=== PATIENT | female | born 1990 | race Caucasian/White ===

== ENCOUNTER → 2018-07-09 | Outpatient (CLI) | payer MEDICAID ==
--- NOTE | 2018-07-09 12:46 | RADIOLOGY REPORT (SQ) ---
EXAM DESCRIPTION: CT ABDOMEN WITH IV ORAL CONT COMPLETED DATE/TIME: 07/09/2018 9:42 am REASON FOR STUDY: R16.2 HEPATOMEGALY WITH SPLENOMEGALY, NOT ELSEWHERE CLASSIFIED R16.2 HEPATOMEGALY WITH SPLENOMEGALY, NOT ELSEWHERE CLASSIFI R94.5 ABNORMAL RESULTS OF LIVER FUNCTION STUDIES COMPARISON: None. TECHNIQUE: CT scan of the abdomen performed with intravenous and with oral contrast using helical sc anning technique with dynamic intravenous contrast injection. Images reviewed with lung, soft tissue, and bone windows. Reconstructed coronal and sagittal MPR images reviewed. Delayed images for evaluat ion of the urinary system also acquired and evaluated. All images stored on PACS. All CT scanners at this facility use dose modulation, iterative reconstruc tion, and/or weight based dosing when appropriate to reduce radiation dose to as low as reasonably ac hievable (ALARA). [facility]: Dose Right [facility]: CareDose [facility]: Dose Right [facility]: Teradose 4D [facility]: GreenNote CONTRAST TYPE AND DOSE: contrast/concentration: Isovue 350.00 mg/ml; Total Contrast Delivered: 89.0 ml; Total Saline Delivered: 53.1 ml RENAL FUNCTION: GFR > 60. RADIATION DOSE: CT Rad equipment meets quality standard of care and radiation dose reduction techniq ues were employed. CTDIvol: 8.4 - 10.0 mGy. DLP: 702 mGy-cm. . LIMITATIONS: None. FINDINGS: LOWER CHEST: No significant findings. No nodules or infiltrates. LIVER: Hepatomegaly with anatomic variant Violeta's lobe. Both lobes measuring about 21 cm in the mid clavicular line. Diffuse low attenuation consistent with fatty change. SPLEEN: Length of 13 cm. No focal lesions. PANCREAS: No masses. No significant calcifications. No adjacent inflammation or peripancreatic fluid collections. Pancreatic duct not dilated. GALLBLADDER: No identified stones by CT criteria. No inflammatory changes to suggest cholecystitis. ADRENAL GLANDS: No significant masses or asymmetry. RIGHT KIDNEY AND URETER: No solid masses. No significant calcifications. No hydronephrosis or hyd roureter. LEFT KIDNEY AND URETER: No solid masses. No significant calcifications. No hydronephrosis or hydr oureter. AORTA AND VESSELS: No aneurysm. No dissection. Renal arteries, SMA, celiac without stenosis. RETROPERITONEUM: No retroperitoneal adenopathy, hemorrhage or masses. BOWEL AND PERITONEAL CAVITY: No masses or inflammatory changes. No free fluid or peritoneal masses. APPENDIX: Normal. ABDOMINAL WALL: No significant hernia. BONES: No significant or acute findings. OTHER: No other significant finding. IMPRESSION: 1. Hepatic steatosis. Hepatomegaly. No ascites. 2. Borderline splenomegaly. TECHNICAL DOCUMENTATION: JOB ID: [id number] Quality ID # 436: Final reports with documentation of one or more dose reduction techniques (e.g., Au tomated exposure control, adjustment of the mA and/or kV according to patient size, use of iterative reconstruction technique) 2010 [employer]- All Rights Reserved Reading location - IP/workstation name: [facility]
== END ==
LOC: RAD 08:55
PROVIDERS: ATTEND Internal Medicine Gastroenterology
DX: R16.2 Hepatomegaly with splenomegaly, not elsewhere classified (principal); R94.5 Abnormal results of liver function studies
CPT/HCPCS: 74160; 82565

== ENCOUNTER 2018-07-27 09:02 | Day surgery (SDC) | payer MEDICAID ==
[2018-07-27 10:22] LABS: HEMATOCRIT 35.1 % (36.0-47.0); HEMOGLOBIN 12.4 g/dL (12.0-15.5); MEAN CORPUSCULAR HEMOGLOBIN 30.7 pg (27.0-33.4); MEAN CORPUSCULAR HGB CONC 35.2 g/dL (32.0-36.0); MEAN CORPUSCULAR VOLUME 87 fl (80-97); PLATELET COUNT 215 10^3/uL (150-450); RED BLOOD COUNT 4.02 10^6/uL (3.72-5.28); RED CELL DISTRIBUTION WIDTH 13.7 % (11.5-14.0); WHITE BLOOD COUNT 8.4 10^3/uL (4.0-10.5)
[2018-07-27 10:29] LABS: INTERNATIONAL RATION (INR) 1.07; PROTHROMBIN TIME 14.5 SEC (11.4-15.4)
[2018-07-27 10:30] LABS: PARTIAL THROMBOPLASTIN TIME 28.6 SEC (23.5-35.8)
[2018-07-27 10:45] LABS: BLOOD UREA NITROGEN 10 mg/dL (7-20); GLUCOSE 222 mg/dL (75-110)
[2018-07-27] MEDS ORDERED: LIDOCAINE 1% INJ-PF (10 MG/ML) 30 ML SDV ONE (11:04)
[2018-07-27] MEDS ORDERED: MIDAZOLAM 2 MG/2 ML INJ ONE (11:04)
[2018-07-27] MEDS ORDERED: FENTANYL CITRATE INJ/PF 250 MCG/5 ML AMPULE ONE (11:04)
--- NOTE | 2018-07-27 12:29 | RADIOLOGY REPORT (SQ) ---
EXAM DESCRIPTION: CT BIOPSY LIVER; CT NEEDLE PLACEMENT COMPLETED DATE/TIME: 07/27/2018 11:53 am REASON FOR STUDY: HEPATOMEGALY; HEPATOMEGALY, LIVER BIOPSY R16.2 HEPATOMEGALY WITH SPLENOMEGALY, NO T ELSEWHERE CLASSIFIED COMPARISON: None. TECHNIQUE: After obtaining informed consent and explaining the risks and benefits of conscious sedat ion,the patient agreed to the procedure. The patient was brought to the CT suite and was placed supin e on the CT gurney. The patient was prepped and draped in the usual sterile fashion . Axial images w ere obtained for targeting of the right lobe of the liver. An appropriate access site was selected. I V conscious sedation was administered and physician direction by the registered nurse using to millig corwin of Versed and 150 micrograms of fentanyl. Physiologic monitoring was provided before, during, an d after sedation. The total sedation time was 45 minutes. Documentation face to face time, the performing proceduralist, spent monitoring the patient: [address] of the liver was performed to localize an approach for the right lobe of the liver biopsy. A percutaneous site was marked. Time out was performed. After skin prep and local lidocaine for skin and deep tissue anesthesia, a coaxial biopsy needle sys tem was used to obtain several cores of tissue from the right lobe of the liver. These were submitte d to the lab in formalin. No immediate postprocedure complications. Total of 15.[address] fluoro was used. [address] Fluoroscopic images were obtained and saved to PACS. All CT scanners at this facility use dose modulation, iterative reconstruction, and/or weight based d osing when appropriate to reduce radiation dose to as low as reasonably achievable (ALARA). [facility]: Dose Right [facility]: CareDose [facility]: Dose Right [facility]: Teradose 4D [facility]: [employer] RADIATION DOSE: CT Rad equipment meets quality standard of care and radiation dose reduction techniq ues were employed. CTDIvol: 6.7 - 19.8 mGy. DLP: 455 mGy-cm. mGy. LIMITATIONS: None. FINDINGS: CT guided liver biopsy as detailed above. IMPRESSION: CT GUIDED right Lobe Of The LIVER BIOPSY PERFORMED ABOVE. PATHOLOGY PENDING. NO IM MEDIATE COMPLICATIONS. COMMENT: Patient medication list reviewed:Yes- Quality ID# [id number]:Eligible professional attests to docu menting in the medical record they obtained, updated, or reviewed the patient's current medications.. Quality ID 145: Final reports for procedures using fluoroscopy that document radiation exposure janice jennifer, or exposure time and number of fluorographic images (if radiation exposure indices are not avail able) TECHNICAL DOCUMENTATION: JOB ID: [id number] Quality ID # 436: Final reports with documentation of one or more dose reduction techniques (e.g., A utomated exposure control, adjustment of the mA and/or kV according to patient size, use of iterative reconstruction technique) 2010 [employer]- All Rights Reserved Reading location - IP/workstation name: [email or web address]
--- NOTE | 2018-07-27 12:29 | RADIOLOGY REPORT (SQ) ---
EXAM DESCRIPTION: CT BIOPSY LIVER; CT NEEDLE PLACEMENT COMPLETED DATE/TIME: 07/27/2018 11:53 am REASON FOR STUDY: HEPATOMEGALY; HEPATOMEGALY, LIVER BIOPSY R16.2 HEPATOMEGALY WITH SPLENOMEGALY, NO T ELSEWHERE CLASSIFIED COMPARISON: None. TECHNIQUE: After obtaining informed consent and explaining the risks and benefits of conscious sedat ion,the patient agreed to the procedure. The patient was brought to the CT suite and was placed supin e on the CT gurney. The patient was prepped and draped in the usual sterile fashion . Axial images w ere obtained for targeting of the right lobe of the liver. An appropriate access site was selected. I V conscious sedation was administered and physician direction by the registered nurse using to millig corwin of Versed and 150 micrograms of fentanyl. Physiologic monitoring was provided before, during, an d after sedation. The total sedation time was 45 minutes. Documentation face to face time, the performing proceduralist, spent monitoring the patient: [address] of the liver was performed to localize an approach for the right lobe of the liver biopsy. A percutaneous site was marked. Time out was performed. After skin prep and local lidocaine for skin and deep tissue anesthesia, a coaxial biopsy needle sys tem was used to obtain several cores of tissue from the right lobe of the liver. These were submitte d to the lab in formalin. No immediate postprocedure complications. Total of 15.[address] fluoro was used. [address] Fluoroscopic images were obtained and saved to PACS. All CT scanners at this facility use dose modulation, iterative reconstruction, and/or weight based d osing when appropriate to reduce radiation dose to as low as reasonably achievable (ALARA). [facility]: Dose Right [facility]: CareDose [facility]: Dose Right [facility]: Teradose 4D [facility]: Cardeeo RADIATION DOSE: CT Rad equipment meets quality standard of care and radiation dose reduction techniq ues were employed. CTDIvol: 6.7 - 19.8 mGy. DLP: 455 mGy-cm. mGy. LIMITATIONS: None. FINDINGS: CT guided liver biopsy as detailed above. IMPRESSION: CT GUIDED right Lobe Of The LIVER BIOPSY PERFORMED ABOVE. PATHOLOGY PENDING. NO IM MEDIATE COMPLICATIONS. COMMENT: Patient medication list reviewed:Yes- Quality ID# [id number]:Eligible professional attests to docu menting in the medical record they obtained, updated, or reviewed the patient's current medications.. Quality ID 145: Final reports for procedures using fluoroscopy that document radiation exposure janice jennifer, or exposure time and number of fluorographic images (if radiation exposure indices are not avail able) TECHNICAL DOCUMENTATION: JOB ID: [id number] Quality ID # 436: Final reports with documentation of one or more dose reduction techniques (e.g., A utomated exposure control, adjustment of the mA and/or kV according to patient size, use of iterative reconstruction technique) 2010 [employer]- All Rights Reserved Reading location - IP/workstation name: [email or web address]
[2018-07-27 14:03] VITALS: BP 120/72
== END 2018-07-27 14:05 | disposition home or self-care (01) ==
LOC: RAD 09:02
PROVIDERS: ATTEND Physician Assistant Surgical
DX: R16.2 Hepatomegaly with splenomegaly, not elsewhere classified (principal); K76.0 Fatty (change of) liver, not elsewhere classified; E11.9 Type 2 diabetes mellitus without complications; Z79.899 Other long term (current) drug therapy; Z79.84 Long term (current) use of oral hypoglycemic drugs
CPT/HCPCS: 36415; 84520; 82565; 82947; 85027; 85610; 85730; 88305 ×2; 88313 ×2; 77012; 47000; J2250; J3010; J3490

== ENCOUNTER 2018-08-01 20:25 | Emergency (ER) | payer MEDICAID ==
[2018-08-01] MEDS ORDERED: MORPHINE SULFATE 10 MG/ML INJ IV PRN (21:18)
[2018-08-01] MEDS ORDERED: RINGERS SOLUTION,LACTATED 1,000 ML IV ONE (21:18)
[2018-08-01 21:56] LABS: ABSOLUTE BASOPHILS # (AUTO) 0.1 10^3/uL (0.0-0.2); ABSOLUTE EOSINOPHILS # (AUTO) 0.2 10^3/uL (0.0-0.6); ABSOLUTE LYMPHOCYTES (AUTO) 2.9 10^3/uL (0.5-4.7); ABSOLUTE MONOCYTES (AUTO) 0.5 10^3/uL (0.1-1.4); ABSOLUTE NEUT (AUTO) 7.7 10^3/uL (1.7-8.2); BASOPHILS % (AUTO) 0.6 % (0-2); EOSINOPHILS % (AUTO) 2.1 % (0-6); HEMOGLOBIN 13.3 g/dL (12.0-15.5); MEAN CORPUSCULAR HEMOGLOBIN 30.7 pg (27.0-33.4); MEAN CORPUSCULAR HGB CONC 34.9 g/dL (32.0-36.0); MEAN CORPUSCULAR VOLUME 88 fl (80-97); MONOCYTES % (AUTO) 4.7 % (3-13); PLATELET COUNT 228 10^3/uL (150-450); RED BLOOD COUNT 4.33 10^6/uL (3.72-5.28); RED CELL DISTRIBUTION WIDTH 13.8 % (11.5-14.0); SEGMENTED NEUTROPHILS % (AUTO) 67.6 % (42-78); TOTAL CELLS COUNTED % (AUTO) 100 %; WHITE BLOOD COUNT 11.5 10^3/uL (4.0-10.5)
--- NOTE | 2018-08-01 22:09 | ER Document Report ---
ED General - General Chief Complaint: Abdominal Pain Stated Complaint: LEFT SIDE PAIN Time Seen by Provider: 08/01/18 21:17 Notes: Patient is a 28-year-old female with a past medical history of hepatosplenomegaly, had a liver biopsy done 6 days ago who presents with 5 days of intermittent, progressively worsening right upper quadrant and right flank pain. Describes it as a stabbing, aching, intermittent pain. Nothing improves or worsens that pain. She denies any associated fever, constitutional symptoms or vomiting. Has not contacted her physician regarding today's concerns. TRAVEL OUTSIDE OF THE [place] IN LAST 30 DAYS: No - Related Data Allergies/Adverse Reactions: No Known Allergies Allergy (Unverified 07/24/18 14:44) Past Medical History - General Information source: Patient - Social History Smoking Status: Never Smoker Frequency of alcohol use: None Drug Abuse: None Lives with: Family Family History: Reviewed & Not Pertinent - Past Medical History Cardiac Medical History: Denies: Hx Coronary Artery Disease, Hx Heart Attack, Hx Hypertension Pulmonary Medical History: Denies: Hx Asthma, Hx Bronchitis, Hx COPD, Hx Pneumonia Neurological Medical History: Denies: Hx Cerebrovascular Accident, Hx Seizures Musculoskeletal Medical History: Denies Hx Arthritis - Immunizations Hx Diphtheria, Pertussis, Tetanus Vaccination: Yes Review of Systems - Review of Systems Notes: Constitutional: Negative for fever. HENT: Negative for sore throat. Eyes: Negative for visual changes. Cardiovascular: Negative for chest pain. Respiratory: Negative for shortness of breath. Gastrointestinal: Positive for abdominal pain Genitourinary: Negative for dysuria. Musculoskeletal: Negative for back pain. Skin: Negative for rash. Neurological: Negative for headaches, weakness or numbness. 10 point ROS negative except as marked above and in HPI. Physical Exam - Vital signs Vitals: Temp Pulse Resp BP Pulse Ox 98.8 F 74 16 148/81 H 99 08/01/18 20:26 08/01/18 20:26 08/01/18 20:26 08/01/18 20:26 08/01/18 20:26 Interpretation: Hypertensive Notes: PHYSICAL EXAMINATION: GENERAL: Well-appearing, well-nourished and in no acute distress. HEAD: Atraumatic, normocephalic. EYES: Pupils equal round and reactive to light, extraocular movements intact, sclera anicteric, conjunctiva are normal. ENT: nares patent, oropharynx clear without exudates. Moist mucous membranes. NECK: Normal range of motion, supple without lymphadenopathy LUNGS: Breath sounds clear to auscultation bilaterally and equal. No wheezes rales or rhonchi. HEART: Regular rate and rhythm without murmurs ABDOMEN: Soft, nontender, normoactive bowel sounds. No guarding, no rebound. No masses appreciated. EXTREMITIES: Normal range of motion, no pitting or edema. No cyanosis. NEUROLOGICAL: No focal neurological deficits. Moves all extremities spontaneously and on command. PSYCH: Normal mood, normal affect. SKIN: Warm, Dry, normal turgor, no rashes or lesions noted. Course - Re-evaluation Re-evalutation: 08/01/18 22:08 Patient presents with 4 days of ongoing right upper quadrant and right flank pain after having a liver biopsy done on Friday. On abdominal exam she has very minimal tenderness the right upper quadrant, is otherwise very well in appearance. Vitals normal limits. No evidence of anemia on CBC. Given that the patient had recent have a biopsy and is having ongoing pain to the upper area that she states has been getting progressively worse will obtain a CT scan of the abdomen pelvis to evaluate for any evidence of postoperative bleeding, intra-abdominal abscess. 08/01/18 22:59 CT scan of the abdomen pelvis unremarkable without any evidence of postoperative complication. Patient's abdominal exam remains benign. At this time will discharge with return precautions and follow-up recommendations. Verbal discharge instructions given a the bedside and opportunity for questions given. Medication warnings reviewed. Patient is in agreement with this plan and has verbalized understanding of return precautions and the need for primary care follow-up in the next 24-72 hours. - Vital Signs Vital signs: Temp Pulse Resp BP Pulse Ox 98.4 F 66 17 124/76 99 08/01/18 23:37 08/01/18 23:37 08/01/18 23:37 08/01/18 23:37 08/01/18 23:37 - Laboratory Result Diagrams: 08/01/18 21:39 08/01/18 21:39 Laboratory results interpreted by me: 08/01/18 08/01/18 21:39 21:39 WBC 11.5 H Glucose 235 H AST 64 H ALT 77 H - Diagnostic Test Radiology reviewed: Reports reviewed Discharge - Discharge Clinical Impression: Postoperative pain, Hepatomegaly Condition: Good Disposition: HOME, SELF-CARE Additional Instructions: Your CT scan is normal without any evidence of bleeding or postoperative complication. Please follow closely with the doctor who performed your procedure regarding your postoperative pain. Please return if you develop a fever of greater than 100.4 F, worsening pain, began vomiting, or have any other symptoms that are worrisome to you. Referrals: GEORGINA RICHARDS, JOSÉ ANTONIOC [Primary Care Provider] - Follow up as needed
[2018-08-01 22:13] LABS: ALANINE AMINOTRANSFERASE 77 U/L (9-52); ALBUMIN 4.3 g/dL (3.5-5.0); ALKALINE PHOSPHATASE 86 U/L (38-126); ANION GAP 11 (5-19); ASPARTATE AMINO TRANSFERASE 64 U/L (14-36); BILIRUBIN,DIRECT 0.4 mg/dL (0.0-0.4); BILIRUBIN,TOTAL 1.2 mg/dL (0.2-1.3); BLOOD UREA NITROGEN 10 mg/dL (7-20); CALCIUM 9.9 mg/dL (8.4-10.2); CARBON DIOXIDE 24 mmol/L (22-30); CHLORIDE 102 mmol/L (98-107); GLUCOSE 235 mg/dL (75-110); POTASSIUM 4.3 mmol/L (3.6-5.0); SODIUM 137.2 mmol/L (137-145)
[2018-08-01 22:19] LABS: INTERNATIONAL RATION (INR) 1.02; PROTHROMBIN TIME 13.9 SEC (11.4-15.4)
[2018-08-01 22:20] LABS: PARTIAL THROMBOPLASTIN TIME 31.5 SEC (23.5-35.8)
--- NOTE | 2018-08-01 22:35 | RADIOLOGY REPORT (SQ) ---
CT ABDOMEN PELVIS WITH IV CONTRAST HISTORY: Abdominal pain status post biopsy. COMPARISON: 07/09/2018 TECHNIQUE: CT scan of the abdomen and pelvis with IV contrast. This exam was performed according to our departmental dose-optimization program, which includes automated exposure control, adjustment of the mA and/or kV according to patient size and/or use of iterative reconstruction technique. FINDINGS: The lung bases are clear. No pleural or pericardial effusions. There is diffuse hepatic steatosis. Liver is enlarged measuring 21 cm. No fluid collection is seen. Spleen is mildly enlarged measuring 14 cm. The pancreas is unremarkable. No gallstones by CT criteria. No adrenal masses are identified. The kidneys are symmetric without hydronephrosis. No ureteral or bladder stones are seen. There is a 2.2 x 1.9 cm right ovarian corpus luteum cyst. No small bowel obstruction. The appendix is unremarkable. The abdominal aorta is normal caliber. There are no suspicious osseous lesions identified. IMPRESSION: 1. Redemonstrated hepatomegaly and hepatic steatosis. No surrounding free fluid, free air, or abscess. 2. Mild splenomegaly. 3. 2.2 cm right corpus luteum cyst.
[2018-08-01 23:38] VITALS: BP 124/76
== END 2018-08-01 23:37 | disposition home or self-care (01) ==
LOC: ER 20:25
DX: R16.2 Hepatomegaly with splenomegaly, not elsewhere classified (principal); Z98.890 Other specified postprocedural states; R10.11 Right upper quadrant pain; R10.9 Unspecified abdominal pain
CPT/HCPCS: 99284; 96361; 96374; 36415; 85025; 85610; 85730; 80053; 74177; J2270; J7120

== ENCOUNTER 2020-07-11 16:49 | Emergency (ER) | payer MEDICAID ==
--- NOTE | 2020-07-11 17:03 | ER Document Report ---
ED Medical Screen (RME) - General Chief Complaint: Abdominal Pain Stated Complaint: ABDOMINAL PAIN Time Seen by Provider: 07/11/20 16:59 Primary Care Provider: AISHA GUERRERO FNP-C [Primary Care Provider] - Follow up as needed Notes: HPI: 30-year-old female with onset of epigastric right upper quadrant pain with radiation into the right thoracic back around 11 AM today. Patient woke up with anorexia. No right lower quadrant pain no dysuria no fever. Slight nausea no vomiting. PHYSICAL EXAMINATION: Patient is moderately tender in the epigastric and right upper quadrant region. There is no tenderness in the right lower quadrant on palpation I have greeted and performed a rapid initial assessment of this patient. A comprehensive ED assessment and evaluation of the patient, analysis of test resu lts and completion of medical decision making process will be conducted by an additional ED providers. Please note that clinical decision making for this patient was made during the 2019 pandemic of novel coronavirus which caused a significant strain on the healthcare system including at this particular facility. Criteria for admission discharge and level of care decisions as well as treatment decisions have necessarily changed TRAVEL OUTSIDE OF THE [place] IN LAST 30 DAYS: No - Related Data Allergies/Adverse Reactions: No Known Allergies Allergy (Verified 07/11/20 16:57) Home Medications: omeprazole. levothyroxine. metformin. fluconazole Past Medical History - Social History Chew tobacco use (# tins/day): No Frequency of alcohol use: Occasional Drug Abuse: None - Past Medical History Cardiac Medical History: Denies: Hx Coronary Artery Disease, Hx Heart Attack, Hx Hypertension Pulmonary Medical History: Denies: Hx Asthma, Hx Bronchitis, Hx COPD, Hx Pneumonia Neurological Medical History: Denies: Hx Cerebrovascular Accident, Hx Seizures Endocrine Medical History: Reports: Hx Diabetes Mellitus Type 1, Hx Diabetes Mellitus Type 2 Renal/ Medical History: Denies: Hx Peritoneal Dialysis Musculoskeltal Medical History: Denies Hx Arthritis - Immunizations Hx Diphtheria, Pertussis, Tetanus Vaccination: Yes Physical Exam - Vital signs Vitals: Temp Pulse Resp BP Pulse Ox 98.5 F 79 20 142/84 H 100 07/11/20 16:55 07/11/20 16:55 07/11/20 16:55 07/11/20 16:55 07/11/20 16:55 Course - Vital Signs Vital signs: Temp Pulse Resp BP Pulse Ox 98.5 F 79 20 142/84 H 100 07/11/20 16:55 07/11/20 16:55 07/11/20 16:55 07/11/20 16:55 07/11/20 16:55 Doctor's Discharge - Discharge Referrals: AISHA GUERRERO, B[employer]ATT[employer] SPECIALIST-C [Primary Care Provider] - Follow up as needed
--- NOTE | 2020-07-11 18:52 | RADIOLOGY REPORT (SQ) ---
EXAM DESCRIPTION: U/S ABDOMEN LIMITED W/O DOP IMAGES COMPLETED DATE/TIME: 07/11/2020 2:34 pm REASON FOR STUDY: epigastric/RUQ pain COMPARISON: CT abdomen 07/09/2018. TECHNIQUE: Dynamic and static grayscale images acquired of the abdomen and recorded on PACS. Additio nal selected color Doppler and spectral images recorded. LIMITATIONS: Portions of the pancreatic tail are partially obscured due to overlying bowel. FINDINGS: PANCREAS: Visualized portions are unremarkable. LIVER: Enlarged with diffuse increased echogenicity. No focal mass. LIVER VASCULATURE: Normal directional flow of the main portal vein and hepatic veins. GALLBLADDER: No stones. Normal wall thickness. No pericholecystic fluid. ULTRASOUND-DETECTED NJ'S SIGN: Negative. INTRAHEPATIC DUCTS AND COMMON DUCT: CBD and intrahepatic ducts normal caliber. No filling defects. INFERIOR VENA CAVA: Visualized portions are unremarkable. AORTA: No aneurysm. RIGHT KIDNEY: Normal size. Normal echogenicity. No solid or suspicious masses. No hydronephrosis. No calcifications. PERITONEAL AND RIGHT PLEURAL SPACE: No ascites or effusions. OTHER: No other significant findings. IMPRESSION: Hepatomegaly with diffuse steatosis. TECHNICAL DOCUMENTATION: JOB ID: [id number] 2010 [employer]- All Rights Reserved Reading location - IP/workstation name: [email or web address]
[2020-07-11 19:00] LABS: ABSOLUTE BASOPHILS # (AUTO) 0.1 10^3/uL (0.0-0.2); ABSOLUTE EOSINOPHILS # (AUTO) 0.1 10^3/uL (0.0-0.6); ABSOLUTE LYMPHOCYTES (AUTO) 1.9 10^3/uL (0.5-4.7); ABSOLUTE MONOCYTES (AUTO) 0.3 10^3/uL (0.1-1.4); ABSOLUTE NEUT (AUTO) 11.8 10^3/uL (1.7-8.2); BASOPHILS % (AUTO) 0.6 % (0-2); EOSINOPHILS % (AUTO) 0.5 % (0-6); HEMOGLOBIN 13.7 g/dL (12.0-15.5); LYMPHOCYTES % (AUTO) 13.1 % (13-45); MEAN CORPUSCULAR HEMOGLOBIN 29.4 pg (27.0-33.4); MEAN CORPUSCULAR HGB CONC 34.3 g/dL (32.0-36.0); MEAN CORPUSCULAR VOLUME 86 fl (80-97); MONOCYTES % (AUTO) 2.3 % (3-13); PLATELET COUNT 252 10^3/uL (150-450); RED BLOOD COUNT 4.67 10^6/uL (3.72-5.28); RED CELL DISTRIBUTION WIDTH 14.9 % (11.5-14.0); SEGMENTED NEUTROPHILS % (AUTO) 83.5 % (42-78); TOTAL CELLS COUNTED % (AUTO) 100 %; WHITE BLOOD COUNT 14.2 10^3/uL (4.0-10.5)
[2020-07-11 19:07] LABS: AMORPHOUS SEDIMENT,URINE 1+ /HPF; APPEARANCE,URINE TURBID; BILIRUBIN,URINE NEGATIVE (NEGATIVE); COLOR,URINE YELLOW; GLUCOSE, URINE >=500 mg/dL (NEGATIVE); KETONES,URINE NEGATIVE (NEGATIVE); LEUKOCYTE ESTERASE,URINE TRACE (NEGATIVE); NITRITE,URINE NEGATIVE (NEGATIVE); PROTEIN,URINE 30 mg/dL (NEGATIVE); URINE SPECIFIC GRAVITY 1.032; UROBILINOGEN,URINE NEGATIVE mg/dL (<2.0)
[2020-07-11 19:13] LABS: ALBUMIN 4.5 g/dL (3.5-5.0); ALKALINE PHOSPHATASE 79 U/L (38-126); ANION GAP 9 (5-19); ASPARTATE AMINO TRANSFERASE 73 U/L (14-36); BILIRUBIN,DIRECT 0.3 mg/dL (0.0-0.4); BLOOD UREA NITROGEN 12 mg/dL (7-20); CARBON DIOXIDE 26 mmol/L (22-30); CHLORIDE 100 mmol/L (98-107); GLUCOSE 257 mg/dL (75-110); POTASSIUM 4.1 mmol/L (3.6-5.0); TOTAL PROTEIN 7.6 g/dL (6.3-8.2)
--- NOTE | 2020-07-11 21:30 | ER Document Report ---
ED General - General Chief Complaint: Abdominal Pain Stated Complaint: ABDOMINAL PAIN Time Seen by Provider: 07/11/20 16:59 Primary Care Provider: AISHA GUERRERO FNP-C [Primary Care Provider] - Follow up in 1 week Notes: 30-year-old female with diabetes, GERD presents with 1 day of intermittent cramping mid abdominal pain that feels like it comes on as a wave and gets tight and relaxes associated with some mild nausea and relieved by taking a hot shower. Patient says that she has had similar pain in the past that has resolved without any intervention. Patient endorses a prior tubal ligation, no other abdominal surgeries. Patient denies any fever, vomiting, diarrhea, constipation, melena, bright red blood per rectum, dysuria, frequency, hematuria, flank pain, trauma, dizziness, syncope, chest pain, shortness of breath, recent illness, myalgia TRAVEL OUTSIDE OF THE [place] IN LAST 30 DAYS: No - Related Data Allergies/Adverse Reactions: No Known Allergies Allergy (Verified 07/11/20 16:57) Home Medications: omeprazole. levothyroxine. metformin. fluconazole Past Medical History - General Information source: Patient, [facility] Records - Social History Smoking Status: Never Smoker Chew tobacco use (# tins/day): No Frequency of alcohol use: Occasional Drug Abuse: None Family History: Reviewed & Not Pertinent Patient has homicidal ideation: No - Past Medical History Cardiac Medical History: Denies: Hx Coronary Artery Disease, Hx Heart Attack, Hx Hypertension Pulmonary Medical History: Denies: Hx Asthma, Hx Bronchitis, Hx COPD, Hx Pneumonia Neurological Medical History: Denies: Hx Cerebrovascular Accident, Hx Seizures Endocrine Medical History: Reports: Hx Diabetes Mellitus Type 1, Hx Diabetes Mellitus Type 2 Renal/ Medical History: Denies: Hx Peritoneal Dialysis Musculoskeletal Medical History: Denies Hx Arthritis - Immunizations Hx Diphtheria, Pertussis, Tetanus Vaccination: Yes Review of Systems - Review of Systems Notes: REVIEW OF SYSTEMS: CONSTITUTIONAL : Denies fever, chills, or sweats. EENT: Denies recent cold/sinus symptoms, denies throat pain CARDIOVASCULAR: Denies chest pain, ADOLFO RESPIRATORY: Denies cough, denies shortness of breath. GASTROINTESTINAL: + abdominal pain, -vomiting. GENITOURINARY: Denies difficulty urinating, painful urination. FEMALE GENITOURINARY: Denies abnormal vaginal bleeding, vaginal discharge. MUSCULOSKELETAL: Denies neck pain, back pain. SKIN: Denies rash or skin lesions. HEMATOLOGIC : Denies easy bruising or bleeding. LYMPHATIC: Denies swollen, enlarged glands. NEUROLOGICAL: Denies headache, denies change in gait. PSYCHIATRIC: Denies anxiety or stress or depression. Physical Exam - Vital signs Vitals: Temp Pulse Resp BP Pulse Ox 98.5 F 79 20 142/84 H 100 07/11/20 16:55 07/11/20 16:55 07/11/20 16:55 07/11/20 16:55 07/11/20 16:55 - Notes Notes: PHYSICAL EXAMINATION: GENERAL: Very well-appearing, well-nourished, pleasant cheerful talkative young adult sitting up in stretcher with no visible signs of discomfort and in no acute distress. HEAD: Atraumatic, normocephalic. EYES: Pupils equal round and appropriate constriction, sclera anicteric, conjunctiva are normal. ENT: nares patent, moist mucous membranes. NECK: Normal range of motion, supple without lymphadenopathy LUNGS: Breath sounds clear to auscultation bilaterally and equal. No wheezes rales or rhonchi. HEART: Regular rate and rhythm without murmurs ABDOMEN: Soft, nontender, no guarding, no rebound, no masses, no CVAT, able to jump up and down on floor without any abdominal pain, mildly hyperactive bowel sounds EXTREMITIES: Normal range of motion, no pitting or edema. No cyanosis. NEUROLOGICAL: Awake, alert, conversing appropriately, moves all extremities spontaneously. PSYCH: Normal mood, normal affect. SKIN: Warm, Dry, normal turgor, no rashes or lesions noted. Course - Re-evaluation Re-evalutation: 07/11/20 21:31 Patient with mild intermittent cramping epigastric pain without any systemic symptoms, tolerating p.o., completely nontender abdominal exam with ability to tolerate jumping up and down without any pain, no signs of appendicitis, biliary etiology. mild leukocytosis on work-up consistent with likely gastroenteritis. Current symptoms could be the onset of an acute surgical pathology however I had extensive discussion with patient as to performing CT abdomen pelvis to rule this out versus watchful waiting. Given that patient has a very reassuring exam currently and mild presentation and she is able to have insight into her illness participate in her decision making, her decision not to have a CT at this time and to watch her symptoms is a very reasonable one. I spoke to patient at length about all of the concerning symptoms that should prompt her to return to the emergency department immediately which she demonstrated understanding of. Patient has a primary physician which she can follow-up with. Patient denied having any other questions or concerns he was in agreement with discharge plan. Will discharge with symptomatic care. - Vital Signs Vital signs: Temp Pulse Resp BP Pulse Ox 98.6 F 80 18 137/74 H 98 07/11/20 21:34 07/11/20 21:34 07/11/20 21:34 07/11/20 21:34 07/11/20 21:34 - Laboratory Results Result Diagrams: 07/11/20 18:36 07/11/20 18:36 Laboratory Results Interpreted: 07/11/20 07/11/20 07/11/20 18:36 18:36 18:36 WBC 14.2 H RDW 14.9 H [place] % (Auto) 2.3 L Absolute Neuts (auto) 11.8 H Seg Neutrophils % 83.5 H Sodium 134.7 L Glucose 257 H Total Bilirubin 2.0 H AST 73 H ALT 83 H Urine Protein 30 H Urine Glucose (UA) >=500 H Ur Leukocyte Esterase TRACE H Critical Laboratory Results Reviewed: No Critical Results - Radiology Results Critical Radiology Results Reviewed: No Critical Results Discharge - Discharge Clinical Impression: Abnormal liver ultrasound Abdominal pain Qualifiers: Abdominal location: periumbilical Qualified Code(s): R10.33 - Periumbilical pain Leukocytosis Qualifiers: Leukocytosis type: unspecified Qualified Code(s): D72.829 - Elevated white blo od cell count, unspecified Disposition: HOME, SELF-CARE Additional Instructions: Abdominal Pain There are many causes of abdominal pain. Pain can mean a serious problem requiring surgery (such as appendicitis). It can also be an innocent problem that goes away on its own (such as a viral infection). Often, time must pass to determine the cause of pain. The physician does not feel that hospitalization is necessary, at present. Things may change within the next 24 hours. Call the doctor or come back for re- examination if any problems occur, such as: (1) Pain that becomes more severe, steady, or becomes concentrated in one specific area. Also, pain that is more severe with movement or coughing. (2) Vomiting that persists or becomes more frequent. (3) Blood in the vomitus, urine, or bowel movements. Blood in the stool may have a tarry or black appearance. (4) Shaking chills or fever greater than 100 degrees F. (5) The abdomen becomes more distended or swollen. (6) Bowel movements cease. (7) Failure to improve as expected. Your ultrasound showed enlarged liver and the fatty liver. These can be a cause of liver failure in the long run it is important that you follow-up with your primary doctor regarding this. See your primary doctor within 1 week. If at any point your symptoms worsen at all such as described above return to the emergency department immediately. Your blood pressure was mildly high at 142/84, have this rechecked with your primary doctor when you are feeling better. Untreated high blood pressure is a risk factor for heart attack, stroke, and . Prescriptions: Dicyclomine HCl [Bentyl 20 mg Tablet] 20 mg PO QID PRN #20 tablet PRN Reason: Abdominal Cramping Sucralfate [Carafate 1 gm Tablet] 1 gm PO ACHS PRN #10 tablet PRN Reason: Gi Upset Famotidine [Pepcid 20 mg Tablet] 20 mg PO DAILY PRN #12 tablet PRN Reason: Gi Upset Referrals: AISHA GUERRERO FNP-C [Primary Care Provider] - Follow up in 1 week
[2020-07-11 21:35] VITALS: BP 137/74
[2020-07-11] MEDS ORDERED: DICYCLOMINE HCL 20 MG TABLET PO ONE (21:36)
[2020-07-11] MEDS ORDERED: SUCRALFATE 1 GM TABLET PO ONE (21:36)
== END 2020-07-11 22:22 | disposition home or self-care (01) ==
LOC: ER 16:49
DX: R10.33 Periumbilical pain (principal); K76.0 Fatty (change of) liver, not elsewhere classified; K21.9 Gastro-esophageal reflux disease without esophagitis; R10.13 Epigastric pain; D72.829 Elevated white blood cell count, unspecified; R11.0 Nausea; E11.9 Type 2 diabetes mellitus without complications; Z79.84 Long term (current) use of oral hypoglycemic drugs; Z79.899 Other long term (current) drug therapy; Z98.51 Tubal ligation status
CPT/HCPCS: 99284; 36415; 83690; 84703; 85025; 80053; 81001; 76705; J3490 ×2